=== PATIENT | female | born 1960 | race Hispanic/Latino ===

== ENCOUNTER 2022-09-11 07:03 | Emergency (ER) | payer OTHER ==
[~2022-09-11] VITALS: Ht 152.4 cm; Wt 58.5 kg
[2022-09-11 07:50] LABS: BASOPHILS % (AUTO) 0.4 % (0.0-5.0); EOSINOPHILS % (AUTO) 1.7 % (0.0-8.0); HEMATOCRIT 34.4 % (36-48); LYMPHOCYTES % (AUTO) 18.4 % (21.0-51.0); MEAN CORPUSCULAR HEMOGLOBIN 28.7 pg (27.0-33.0); MEAN CORPUSCULAR HGB CONC 34.6 g/dL (32.0-36.0); MEAN CORPUSCULAR VOLUME 83.1 fL (79-99); MONOCYTES % (AUTO) 7.5 % (3.0-13.0); NEUTROPHILS % (AUTO) 71.8 % (40.0-77.0); PLATELET COUNT (AUTO) 102 K/uL (130-400); RED BLOOD CELL COUNT(AUTO) 4.14 MIL/uL (4.00-5.50); RED CELL DISTRIBUTION WIDTH 13.2 % (11.0-15.5); WHITE BLOOD COUNT (AUTO) 5.3 K/uL (4.8-10.8)
[2022-09-11 08:08] LABS: CARBON DIOXIDE 28 mmol/L (21-32); CHLORIDE 97 mmol/L (101-111); CREATININE 0.9 mg/dL (0.5-1.5); GLOMERULAR FILTR. RATE CALC 73 mL/min (>90); GLUCOSE,RANDOM 395 mg/dL (70-105); POTASSIUM 3.9 mmol/L (3.5-5.1); SODIUM SERUM 132 mmol/L (136-145); UREA NITROGEN, BLOOD 12 mg/dL (7-18)
[2022-09-11 08:19] LABS: ALANINE AMINOTRANSFERASE 17 U/L (12-78); ASPARTATE AMINOTRANSFERASE 13 U/L (10-37); CREATINE KINASE, TOTAL 40 U/L (21-232); MYOGLOBIN 30 ng/mL (10-92); TOTAL PROTEIN, SERUM 6.9 g/dL (6.0-8.3)
[2022-09-11 09:01] LABS: B-TYPE NATRIURETIC PEPTIDE 7 pg/mL (0-100)
[2022-09-11 09:10] LABS: INFLUENZA TYPE A NEGATIVE FOR TYPE A (NEG); INFLUENZA TYPE B NEGATIVE FOR TYPE B (NEG)
[2022-09-11 09:18] VITALS: BP 133/78
[2022-09-11] MEDS ORDERED: INSULIN HUMULIN R 100 UNIT/ML 3ML IV ONE (10:30)
[2022-09-11] MEDS ORDERED: CETI10TA57 PO (10:59)
[2022-09-11] MEDS ORDERED: BENZ-39 PO (10:59)
[2022-09-11] MEDS ORDERED: METF-444 PO (10:59)
[2022-09-11] MEDS ORDERED: ALBUHFA IH (10:59)
== END 2022-09-11 11:12 | disposition home or self-care (01) ==
LOC: EDH 07:03
DX: U07.1 COVID-19 (principal); J38.5 Laryngeal spasm; R50.9 Fever, unspecified; E11.65 Type 2 diabetes mellitus with hyperglycemia
CPT/HCPCS: 99285; 71045; 87635; 82550; 83874; 84484; 80053; 83880; 85025; 87880; 87804 ×2; 36415; 93005; J1815; C9803